=== PATIENT | female | born 1950 | race Caucasian/White ===

== ENCOUNTER 2016-09-22 09:00 | Day surgery (SDC) | payer OTHER ==
[~2016-09-22] VITALS: Ht 165.1 cm; Wt 82.0 kg
[~2016-09-22 09:00] MED LIST: HYDROCHLOROTH12.5 M3 PO; LOSARTAN POTAS100 MG PO; MULTI VITAMIN1 EACH PO
[2016-09-22 09:35] VITALS: BP 165/87
[2016-09-22 14:12] VITALS: BP 170/79
[2016-09-22 14:33] VITALS: BP 138/90
== END 2016-09-22 15:45 | disposition home or self-care (01) ==
LOC: SDC 09:00
PROC: 089430Z Drainage of Right Vitreous with Drainage Device, Percutaneous Approach (ICD-10-PCS; principal; 2016-09-22)
DX: H43.391 Other vitreous opacities, right eye (principal); I10 Essential (primary) hypertension
CPT/HCPCS: J0690; J0713; J3300

== ENCOUNTER 2016-11-03 06:34 | Day surgery (SDC) | payer OTHER ==
[~2016-11-03] VITALS: Ht 165.1 cm; Wt 81.6 kg
[~2016-11-03 06:34] MED LIST changes: +DAILY VALUE1 EACH PO; +TYLENOL REGULA325 MG PO
[2016-11-03 07:03] VITALS: BP 160/80
[2016-11-03 10:00] VITALS: BP 163/74
[2016-11-03 10:30] VITALS: BP 177/77
== END 2016-11-03 10:30 | disposition home or self-care (01) ==
LOC: SDC 06:34
PROC: 08B53ZZ Excision of Left Vitreous, Percutaneous Approach (ICD-10-PCS; principal; 2016-11-03)
DX: H43.392 Other vitreous opacities, left eye (principal); I10 Essential (primary) hypertension; K90.41 Non-celiac gluten sensitivity; Z88.8 Allergy status to other drugs, medicaments and biological substances
CPT/HCPCS: J0690; J0713; J2405; J3300